=== PATIENT | male | born 1965 | race Caucasian/White ===

== ENCOUNTER 2017-04-10 18:20 | Emergency (ER) | payer BC ==
[2017-04-10 18:36] VITALS: BP 145/108
[2017-04-10 19:13] LABS: CHLORIDE,CL 106 mEq/L (98-106); SODIUM,NA 144 mEq/L (136-145)
--- NOTE | 2017-04-10 19:26 | EDM.PDOC ---
ED HPI GENERAL MEDICAL PROBLEM - General Chief Complaint: General Stated Complaint: FACIAL DROOP Time Seen by Provider: 04/10/17 18:48 Source of Information: Reports: Patient History Limitations: Reports: No Limitations - History of Present Illness INITIAL COMMENTS - FREE TEXT/NARRATIVE: This patient is a pleasant 51 year old male that presents to the ER. Patient reports that on night he noticed that he was having right sided facial droop. He reports that his right eye would not close completely and was getting dry. He reports that he can not smile because his left side of face is numb and will not work properly. The patient reports there have been no changes since . Patent denies having hazel, dizziness, n, v, d, f, congestion, drainage, cough, sore throat, earache, facial pain, dental pain, neck pain, neck stiffness, cp, soa, abd pain, urinary/bowel changes, rashes. Patient denies having unilateral weaknesses to any limbs. Onset Date: 04/07/17 Onset Time: 21:00 Location: Reports: Face Quality: Reports: Other (numbness) Severity: Moderate Improves with: Reports: None Worsens with: Reports: None Associated Symptoms: Reports: Weakness (left sided facial. ). Denies: Confusion , Chest Pain, Cough, cough w sputum, Diaphoresis, Fever/Chills, Headaches, Loss of Appetite, Malaise, Nausea/Vomiting, Rash, Seizure, Shortness of Breath, Syncope - Related Data Allergies Allergy/AdvReac Type Severity Reaction Status Date / Time No Known Allergies Allergy Verified 04/10/17 18:23 Home Meds: Home Meds Rosuvastatin Calcium [Rosuvastatin Calcium] 10 mg PO DAILY 04/10/17 [History] Past Medical History - Past Health History Medical/Surgical History: Denies Medical/Surgical History Social & Family History - Family History Family Medical History: Noncontributory - Tobacco Use Smoking Status *Q: Never Smoker Second Hand Smoke Exposure: No ED ROS GENERAL - Review of Systems Review Of Systems: See Below Constitutional: Reports: No Symptoms HEENT: Reports: Other (left sided facial weakness) Respiratory: Reports: No Symptoms Cardiovascular: Reports: No Symptoms Endocrine: Reports: No Symptoms GI/Abdominal: Reports: No Symptoms : Reports: No Symptoms Musculoskeletal: Reports: No Symptoms Skin: Reports: No Symptoms Neurological: Reports: Numbness (left sided face), Weakness (left sided facial. Not extremeties. ). Denies: Confusion, Dizziness, Headache, Pre-Existing Deficit, Seizure, Syncope, Tingling, Tremors, Trouble Speaking, Difficulty Walking, Change in Speech, Gait Disturbance Psychiatric: Reports: No Symptoms Hematologic/Lymphatic: Reports: No Symptoms Immunologic: Reports: No Symptoms ED EXAM, GENERAL - Physical Exam Exam: See Below Exam Limited By: No Limitations General Appearance: Alert, WD/WN, No Apparent Distress Eye Exam: Bilateral Eye: EOMI, Normal Inspection, PERRL Ears: Normal External Exam, Normal Canal, Hearing Grossly Normal, Normal TMs Ear Exam: Bilateral Ear: Auricle Normal, Canal Normal, TM normal Nose: Normal Inspection, Normal Mucosa, No Blood Throat/Mouth: Normal Inspection, Normal Lips, Normal Teeth, Normal Gums, Normal Oropharynx, Normal Voice, No Airway Compromise Head: Atraumatic, Normocephalic Neck: Normal Inspection, Supple, Non-Tender, Full Range of Motion Respiratory/Chest: No Respiratory Distress, Lungs Clear, Normal Breath Sounds, No Accessory Muscle Use Cardiovascular: Normal Peripheral Pulses, Regular Rate, Rhythm, No Edema, No Gallop, No JVD, No Murmur, No Rub Peripheral Pulses: 2+: Radial (L), Radial (R) Back Exam: Normal Inspection, Full Range of Motion Extremities: Normal Inspection, Normal Range of Motion, Non-Tender, No Pedal Edema, Normal Capillary Refill Neurological: Alert, Oriented, Normal Cognition, Normal Gait, Other (Left sided facial droop. Forehead is flat. Left eye does not close completely. NIH Stroke Score is 3 due to left sided facial paralysis. ). No: Confused, Disoriented, Slow to Respond, Unresponsive, Abnormal Gait Psychiatric: Normal Affect, Normal Mood Skin Exam: Warm, Dry, Intact, Normal Color, No Rash Lymphatic: No Adenopathy Course - Vital Signs Last Recorded V/S: Last Vital Signs Temp 97.2 F 04/10/17 18:28 Pulse 90 04/10/17 18:28 Resp 18 04/10/17 18:28 BP 145/108 H 04/10/17 18:28 Pulse Ox 96 04/10/17 18:28 - Orders/Labs/Meds Orders: Active Orders 24 hr Category Date Time Status Head wo Cont [CT] Stat Exams 04/10/17 19:04 Taken Labs: Laboratory Tests 04/10/17 04/10/17 Range/Units 18:49 18:49 WBC 9.1 (5.0-10.0) 10^3/uL RBC 4.93 (4.50-6.00) 10^6/uL Hgb 15.3 (14.0-18.0) g/dL Hct 45.0 (40.0-54.0) % MCV 91.3 (82.0-94.0) fL MCH 31.0 (27.0-32.0) pg MCHC 34.0 (33.0-38.0) g/dL RDW Coeff of [place] 12.7 (11.0-15.0) % Plt Count 260 (150-400) 10^3/uL Neut % (Auto) 51.9 (35-85) % Lymph % (Auto) 37.3 (10-55) % [place] % (Auto) 8.7 (0-16) % Eos % (Auto) 1.9 (0-5) % Baso % (Auto) 0.2 (0-3) % Neut # (Auto) 4.73 (1.80-7.00) 10^3/uL Lymph # (Auto) 3.39 (1.00-4.80) 10^3/uL [place] # (Auto) 0.79 (0.00-0.80) 10^3/uL Eos # (Auto) 0.17 (0.00-0.45) 10^3/uL Baso # (Auto) 0.02 10^3/uL ESR 5 (0-15) mm/hr Sodium 144 (136-145) mEq/L Potassium 4.1 (3.5-5.0) mEq/L Chloride 106 (98-106) mEq/L Carbon Dioxide 26 (21-32) mmol/L BUN 18 (7-18) mg/dL Creatinine 1.1 (0.7-1.3) mg/dL Est Cr Clr Drug Dosing 79.45 mL/min Estimated GFR (MDRD) > 60 (>=60) mL/min Glucose 99 (75-99) mg/dL Calcium 9.4 (8.4-10.1) mg/dL Total Bilirubin 0.4 (0.0-1.0) mg/dL AST 23 (15-37) U/L ALT 50 (12-78) U/L Alkaline Phosphatase 101 (46-116) U/L Troponin I < 0.017 (0.00-0.06) ng/mL C-Reactive Protein < 0.2 L (0.2-0.8) mg/dL Total Protein 7.7 (6.4-8.2) g/dL Albumin 4.5 (3.4-5.0) g/dL Meds: Medications Discontinued Medications Generic Name Dose Route Start Last Admin Trade Name Freq PRN Reason Stop Dose Admin Acyclovir 200 mg 04/10/17 20:25 Zovirax PO 04/10/17 20:26 ONETIME ONE Acyclovir 200 mg 04/10/17 20:27 Zovirax PO 04/10/17 20:28 ONETIME ONE Acyclovir 200 mg 04/10/17 20:27 Zovirax PO 04/10/17 20:28 ONETIME ONE Acyclovir 200 mg 04/10/17 20:27 Zovirax PO 04/10/17 20:28 ONETIME ONE Acyclovir 600 mg 04/10/17 20:27 Zovirax PO 04/10/17 20:28 ONETIME ONE Acyclovir 600 mg 04/10/17 20:28 Zovirax PO 04/10/17 20:29 ONETIME ONE Acyclovir 600 mg 04/10/17 20:28 Zovirax PO 04/10/17 20:29 ONETIME ONE Acyclovir 600 mg 04/10/17 20:28 Zovirax PO 04/10/17 20:29 ONETIME ONE Aspirin 325 mg 04/10/17 21:04 Ecotrin PO 04/10/17 21:05 ONETIME ONE Prednisone 2 packet 04/10/17 20:24 Take Home: Prednisone 20 Mg, 2 Tab Pack PO 04/10/17 20:25 ONETIME ONE - Radiology Interpretation Free Text/Narrative:: Head Ct without: Discussed with radiologist: Right Cerebral Artery MCA infarct. CT Results Date: 04/10/17 CT Results Time: 20:40 - Re-Assessments/Exams Free Text/Narrative Re-Assessment/Exam: 04/10/17 21:05 I called and spoke with Dr. Aguilera neurologist at [facility] about this patient. He would like me to have the patient take aspirin 325mg daily. He reports the patient is outside of a stroke window. The patient has an appointment with his neurosurgeon on Tuesday so Dr. Aguilera would just like to see this patient in his office after that appointment. I will provide the phone number for the patient to call. Departure - Departure Time of Disposition: 21:05 Disposition: Home, Self-Care 01 Condition: Fair Clinical Impression: CVA, Cerebrovascular accident - Discharge Information Instructions: Stroke Prevention Referrals: Abdiaziz Muniz MD [Primary Care Provider] - Forms: ED Department Discharge Additional Instructions: Followup with your primary care provider Return to the ER for worsening of condition or any emergent concerns such as increase weakness, not able to talk or eat, or any concerns. Take Aspirin 325mg once a day Please call Dr. Aguilera neurologist on Tuesday to set up appointment to see him right after appointment on Tuesday with your neurosurgeon. Phone Number: # [phone] - My Orders Last 24 Hours: My Active Orders 04/10/17 19:04 Head wo Cont [CT] Stat - Assessment/Plan Last 24 Hours: My Active Orders 04/10/17 19:04 Head wo Cont [CT] Stat Plan: PLEASE SEE RN NOTE FOR PFSH.
[2017-04-10] MEDS ORDERED: Take Home: predniSONE 20 MG, 2 Tab Pack PO ONE (20:24)
[2017-04-10] MEDS ORDERED: Acyclovir 200 MG Cap PO ONE ×8 (20:25→20:28)
[2017-04-10] MEDS ORDERED: Aspirin 325 MG Tab.EC PO ONE (21:04)
== END 2017-04-10 21:25 | disposition home or self-care (01) ==
LOC: CC.ED 18:20
DX: I63.9 Cerebral infarction, unspecified (principal); R29.810 Facial weakness; Z79.899 Other long term (current) drug therapy
CPT/HCPCS: 36415; 70450; 80053; 84484; 85025; 85651; 86140; 93005; 99284